=== PATIENT | male | born 1975 | race Caucasian/White ===

== ENCOUNTER 2020-01-10 09:51 | Emergency (ER) | payer BC ==
[~2020-01-10] VITALS: Ht 182.9 cm; Wt 81.6 kg
[2020-01-10 09:51] VITALS: BP 96/59
[2020-01-10] MEDS ORDERED: LORazepam Inj 2mg/ml 1ml ONE (09:58)
[2020-01-10] MEDS ORDERED: LORazepam Inj 2mg/ml 1ml IV ONE (10:00)
--- NOTE | 2020-01-10 10:20 | Emergency Room Report ---
History of Present Illness General Chief Complaint: Overdose Source: Patient (Ankush Alcaraz M.D.) Present Illness HPI Disclaimer: Please note that this report is being documented using [employer] technology. This can lead to erroneous entry secondary to incorrect interpretation by the dictating instrument. HPI: 44-year-old male reported history of depression with previous psychiatric hospitalization approximately 2 to 3 years ago presented for possible overdose. Patient reports that he recently came to [place] from [place]. He states he came here to "kill himself". Last night he was using fentanyl overnight and then called EMS this morning due to feelings of shortness of breath and muscle twitching. He denies any other significant medical history. Denies any allergies. Denies any other medical problems. He states he does not have any family in the area. Past medical history-depression Family history-noncontributory the case Social history occasional drinking, currently uses fentanyl, (Ankush Alcaraz M.D.) Allergies: Coded Allergies: No Known Allergies (Unverified , 01/10/20) COVID-19 Screening Contact w/high risk pt: No Recent Travel to affected area: No Experienced COVID-19 symptoms?: No (Ankush Alcaraz M.D.) Nursing Documentation-H Past Medical History: No Stated History (Ankush Alcaraz M.D.) Review of Systems All Other Systems: negative except mentioned in HPI (Ankush Alcaraz M.D.) Physical Exam Vital Signs Date Time Temp Pulse Resp B/P (MAP) Pulse Ox O2 Delivery O2 Flow Rate FiO2 01/10/20 09:44 98.4 103 22 96/59 (71) 99 Room Air Sp02 EP Interpretation: reviewed, normal General Appearance: mild distress, other - Anxious appearing Head: normocephalic, atraumatic Eyes: bilateral eye PERRL, bilateral eye EOMI ENT: hearing grossly normal, moist mucus membranes Neck: full range of motion, supple Respiratory: lungs clear, normal breath sounds, no rhonchi, no respiratory distress, no retraction, no wheezing Cardiovascular #1: normal peripheral pulses, no murmur, tachycardia Gastrointestinal: non tender, soft, non-distended, no guarding Neurologic: alert, oriented x3, no focal defects Psychiatric: anxious, other - Suicidal ideations, denies homicidal ideations Skin: normal color, warm/dry (Ankush Alcaraz M.D.) Medical Decision Making Diagnostic Impression: Primary Impression: Drug overdose Qualified Codes: T50.902A - Poisoning by unspecified drugs, medicaments and biological substances, intentional self-harm, initial encounter ER Course MDM: Patient presented from a hotel room after reportedly using fentanyl. On arrival he was anxious, tachycardic, and endorsing suicidal ideations. IV inserted patient placed on the monitor, given IV fluids, Ativan. Medical clearance labs were sent Clinical course-again IV fluids, Ativan, cardiac monitoring pulse oximetry, medical clearance labs were sent. Initially patient's glucose was elevated on his first chemistry. Also with an elevated anion gap and ketones in the urine. I then repeated his glucose which turned out to be normal around 70. Patient was eating food in the ER. So now I have a low suspicion for DKA however he does state he has not been eating or drinking appropriately for the past few days. So my differential included starvation ketosis, dehydration to name a few. Patient was signed out to oncoming physician to reassess patient and final disposition. Laboratory Tests Test 01/10/20 10:17 01/10/20 11:34 01/10/20 13:38 01/10/20 13:45 White Blood Count 23.3 K/UL (4.8-10.8) *H Red Blood Count 4.50 M/UL (4.70-6.10) L Hemoglobin 15.7 G/DL (14.2-18.0) Hematocrit 43.4 % (42.0-52.0) Mean Corpuscular Volume 96 FL (80-99) Mean Corpuscular Hemoglobin 34.8 PG (27.0-31.0) H Mean Corpuscular Hemoglobin Concent 36.1 G/DL (32.0-36.0) H Red Cell Distribution Width 11.2 % (11.6-14.8) L Platelet Count 241 K/UL (150-450) Mean Platelet Volume 6.5 FL (6.5-10.1) Neutrophils (%) (Auto) % (45.0-75.0) Lymphocytes (%) (Auto) % (20.0-45.0) Monocytes (%) (Auto) % (1.0-10.0) Eosinophils (%) (Auto) % (0.0-3.0) Basophils (%) (Auto) % (0.0-2.0) Differential Total Cells Counted 100 Neutrophils % (Manual) 87 % (45-75) H Lymphocytes % (Manual) 5 % (20-45) L Monocytes % (Manual) 8 % (1-10) Eosinophils % (Manual) 0 % (0-3) Basophils % (Manual) 0 % (0-2) Band Neutrophils 0 % (0-8) Platelet Estimate Adequate Platelet Morphology Normal Red Blood Cell Morphology Normal Sodium Level 139 MMOL/L (136-145) 133 MMOL/L (136-145) L Potassium Level 4.7 MMOL/L (3.5-5.1) 4.9 MMOL/L (3.5-5.1) Chloride Level 96 MMOL/L (98-107) L 96 MMOL/L (98-107) L Carbon Dioxide Level 15 MMOL/L (21-32) L 14 MMOL/L (21-32) L Anion Gap 28 mmol/L (5-15) H 23 mmol/L (5-15) H Blood Urea Nitrogen 28 mg/dL (7-18) H 28 mg/dL (7-18) H Creatinine 2.0 MG/DL (0.55-1.30) H 1.1 MG/DL (0.55-1.30) Estimated Glomerular Filtration Rate 36.5 mL/min (>60) > 60 mL/min (>60) Glucose Level 271 MG/DL (74-106) H 73 MG/DL (74-106) #L Calcium Level 8.9 MG/DL (8.5-10.1) 8.1 MG/DL (8.5-10.1) L Total Bilirubin 0.3 MG/DL (0.2-1.0) 0.7 MG/DL (0.2-1.0) Aspartate Amino Transferase (AST) 54 U/L (15-37) H 60 U/L (15-37) H Alanine Aminotransferase (ALT) 35 U/L (12-78) 32 U/L (12-78) Alkaline Phosphatase 93 U/L (46-116) 75 U/L (46-116) Total Protein 8.1 G/DL (6.4-8.2) 7.5 G/DL (6.4-8.2) Albumin 3.9 G/DL (3.4-5.0) 3.6 G/DL (3.4-5.0) Globulin 4.2 g/dL 3.9 g/dL Albumin/Globulin Ratio 0.9 (1.0-2.7) L 0.9 (1.0-2.7) L Lipase 521 U/L (73-393) H Salicylates Level 3.1 ug/mL (2.8-20) Acetaminophen Level < 2 MCG/ML (10-30) L Serum Alcohol < 3 mg/dL Urine Color Pale yellow Urine Appearance Clear Urine pH 5 (4.5-8.0) Urine Specific [place] 1.030 (1.005-1.035) Urine Protein 2+ (NEGATIVE) H Urine Glucose (UA) 3+ (NEGATIVE) H Urine Ketones 3+ (NEGATIVE) H Urine Blood 4+ (NEGATIVE) H Urine Nitrite Negative (NEGATIVE) Urine Bilirubin Negative (NEGATIVE) Urine Urobilinogen Normal MG/DL (0.0-1.0) Urine Leukocyte Esterase Negative (NEGATIVE) Urine RBC 5-10 /HPF (0 - 0) H Urine WBC 0-2 /HPF (0 - 0) Urine Squamous Epithelial Cells Occasional /LPF Urine Bacteria Occasional /HPF (NONE) Urine Opiates Screen Negative (NEGATIVE) Urine Barbiturates Screen Negative (NEGATIVE) Phencyclidine (PCP) Screen Negative (NEGATIVE) Urine Amphetamines Screen Negative (NEGATIVE) Urine Benzodiazepines Screen Negative (NEGATIVE) Urine Cocaine Screen Negative (NEGATIVE) Urine Marijuana (THC) Screen Positive (NEGATIVE) H Arterial Blood pH 7.311 (7.350-7.450) Arterial Blood Partial Pressure CO2 33.6 mmHg (35.0-45.0) L Arterial Blood Partial Pressure O2 96.0 mmHg (75.0-100.0) Arterial Blood HCO3 16.6 mmol/L (22.0-26.0) *L Arterial Blood Oxygen Saturation 97.5 % (95-100) Arterial Blood Base Excess -8.5 (-2-2) L Donal Test Positive (Ankush Alcaraz M.D.) ER Course 44-year-old male presents with acute suicidal ideations, patient pending sobriety, labs slowly correcting after rehydration. Patient continues to have an elevated white count most likely due to stress reaction in the setting of a fentanyl overdose we will continue to monitor patient. Patient is medically cleared for volunteer admission to psychiatric facility Reevaluation at 9:16 PM patient reports that he wants to leave states he will follow-up with a psychiatrist he states he was only high in the moment and is not suicidal Strongly cautioned patient that if he needs psychiatric resources we can voluntarily transport him patient states that he will follow-up as an outpatient we cannot restrict patient against his will patient is of sound mind Patient will follow-up with psychiatric resources Laboratory Tests Test 01/10/20 10:17 01/10/20 11:34 01/10/20 13:38 01/10/20 13:45 White Blood Count 23.3 K/UL (4.8-10.8) *H Red Blood Count 4.50 M/UL (4.70-6.10) L Hemoglobin 15.7 G/DL (14.2-18.0) Hematocrit 43.4 % (42.0-52.0) Mean Corpuscular Volume 96 FL (80-99) Mean Corpuscular Hemoglobin 34.8 PG (27.0-31.0) H Mean Corpuscular Hemoglobin Concent 36.1 G/DL (32.0-36.0) H Red Cell Distribution Width 11.2 % (11.6-14.8) L Platelet Count 241 K/UL (150-450) Mean Platelet Volume 6.5 FL (6.5-10.1) Neutrophils (%) (Auto) % (45.0-75.0) Lymphocytes (%) (Auto) % (20.0-45.0) Monocytes (%) (Auto) % (1.0-10.0) Eosinophils (%) (Auto) % (0.0-3.0) Basophils (%) (Auto) % (0.0-2.0) Differential Total Cells Counted 100 Neutrophils % (Manual) 87 % (45-75) H Lymphocytes % (Manual) 5 % (20-45) L Monocytes % (Manual) 8 % (1-10) Eosinophils % (Manual) 0 % (0-3) Basophils % (Manual) 0 % (0-2) Band Neutrophils 0 % (0-8) Platelet Estimate Adequate Platelet Morphology Normal Red Blood Cell Morphology Normal Sodium Level 139 MMOL/L (136-145) 133 MMOL/L (136-145) L Potassium Level 4.7 MMOL/L (3.5-5.1) 4.9 MMOL/L (3.5-5.1) Chloride Level 96 MMOL/L (98-107) L 96 MMOL/L (98-107) L Carbon Dioxide Level 15 MMOL/L (21-32) L 14 MMOL/L (21-32) L Anion Gap 28 mmol/L (5-15) H 23 mmol/L (5-15) H Blood Urea Nitrogen 28 mg/dL (7-18) H 28 mg/dL (7-18) H Creatinine 2.0 MG/DL (0.55-1.30) H 1.1 MG/DL (0.55-1.30) Estimated Glomerular Filtration Rate 36.5 mL/min (>60) > 60 mL/min (>60) Glucose Level 271 MG/DL (74-106) H 73 MG/DL (74-106) #L Calcium Level 8.9 MG/DL (8.5-10.1) 8.1 MG/DL (8.5-10.1) L Total Bilirubin 0.3 MG/DL (0.2-1.0) 0.7 MG/DL (0.2-1.0) Aspartate Amino Transferase (AST) 54 U/L (15-37) H 60 U/L (15-37) H Alanine Aminotransferase (ALT) 35 U/L (12-78) 32 U/L (12-78) Alkaline Phosphatase 93 U/L (46-116) 75 U/L (46-116) Total Protein 8.1 G/DL (6.4-8.2) 7.5 G/DL (6.4-8.2) Albumin 3.9 G/DL (3.4-5.0) 3.6 G/DL (3.4-5.0) Globulin 4.2 g/dL 3.9 g/dL Albumin/Globulin Ratio 0.9 (1.0-2.7) L 0.9 (1.0-2.7) L Lipase 521 U/L (73-393) H Salicylates Level 3.1 ug/mL (2.8-20) Acetaminophen Level < 2 MCG/ML (10-30) L Serum Alcohol < 3 mg/dL Urine Color Pale yellow Urine Appearance Clear Urine pH 5 (4.5-8.0) Urine Specific [place] 1.030 (1.005-1.035) Urine Protein 2+ (NEGATIVE) H Urine Glucose (UA) 3+ (NEGATIVE) H Urine Ketones 3+ (NEGATIVE) H Urine Blood 4+ (NEGATIVE) H Urine Nitrite Negative (NEGATIVE) Urine Bilirubin Negative (NEGATIVE) Urine Urobilinogen Normal MG/DL (0.0-1.0) Urine Leukocyte Esterase Negative (NEGATIVE) Urine RBC 5-10 /HPF (0 - 0) H Urine WBC 0-2 /HPF (0 - 0) Urine Squamous Epithelial Cells Occasional /LPF Urine Bacteria Occasional /HPF (NONE) Urine Opiates Screen Negative (NEGATIVE) Urine Barbiturates Screen Negative (NEGATIVE) Phencyclidine (PCP) Screen Negative (NEGATIVE) Urine Amphetamines Screen Negative (NEGATIVE) Urine Benzodiazepines Screen Negative (NEGATIVE) Urine Cocaine Screen Negative (NEGATIVE) Urine Marijuana (THC) Screen Positive (NEGATIVE) H Arterial Blood pH 7.311 (7.350-7.450) Arterial Blood Partial Pressure CO2 33.6 mmHg (35.0-45.0) L Arterial Blood Partial Pressure O2 96.0 mmHg (75.0-100.0) Arterial Blood HCO3 16.6 mmol/L (22.0-26.0) *L Arterial Blood Oxygen Saturation 97.5 % (95-100) Arterial Blood Base Excess -8.5 (-2-2) L Donal Test Positive Test 01/10/20 15:45 01/10/20 20:05 White Blood Count 20.3 K/UL (4.8-10.8) H 13.5 K/UL (4.8-10.8) H Red Blood Count 4.08 M/UL (4.70-6.10) L 3.20 M/UL (4.70-6.10) L Hemoglobin 13.7 G/DL (14.2-18.0) L 10.5 G/DL (14.2-18.0) L Hematocrit 41.6 % (42.0-52.0) L 32.6 % (42.0-52.0) L Mean Corpuscular Volume 102 FL (80-99) H 102 FL (80-99) H Mean Corpuscular Hemoglobin 33.5 PG (27.0-31.0) H 32.9 PG (27.0-31.0) H Mean Corpuscular Hemoglobin Concent 32.8 G/DL (32.0-36.0) 32.3 G/DL (32.0-36.0) Red Cell Distribution Width 11.8 % (11.6-14.8) 12.1 % (11.6-14.8) Platelet Count 196 K/UL (150-450) 145 K/UL (150-450) L Mean Platelet Volume 8.4 FL (6.5-10.1) 8.5 FL (6.5-10.1) Neutrophils (%) (Auto) % (45.0-75.0) 82.9 % (45.0-75.0) H Lymphocytes (%) (Auto) % (20.0-45.0) 8.7 % (20.0-45.0) L Monocytes (%) (Auto) % (1.0-10.0) 7.1 % (1.0-10.0) Eosinophils (%) (Auto) % (0.0-3.0) 0.0 % (0.0-3.0) Basophils (%) (Auto) % (0.0-2.0) 1.4 % (0.0-2.0) Differential Total Cells Counted 100 Neutrophils % (Manual) 91 % (45-75) H Lymphocytes % (Manual) 3 % (20-45) L Monocytes % (Manual) 6 % (1-10) Eosinophils % (Manual) 0 % (0-3) Basophils % (Manual) 0 % (0-2) Band Neutrophils 0 % (0-8) Platelet Estimate Adequate Platelet Morphology Normal Macrocytosis 1+ Lipase 156 U/L (73-393) (Oj Craft MD) Last Vital Signs Date Time Temp Pulse Resp B/P (MAP) Pulse Ox O2 Delivery O2 Flow Rate FiO2 01/10/20 09:51 98.4 103 22 96/59 99 Room Air Status: improved (Ankush Alcaraz M.D.) Disposition: HOME, SELF-CARE Condition: Stable Signed Out To: Dr. Craft (Ankush Alcaraz M.D.) Patient Instructions: Self-Destructive Behavior Additional Instructions: The patient was provided with discharge instructions, notified to follow-up with a primary care doctor and or specialist in the next 24-48 hours, and to return to the ED if they have worsening of their symptoms. Please note that this report is being documented using [employer] technology. This can lead to erroneous entry secondary to incorrect interpretation by the dictating instrument. Ankush Alcaraz M.D. January 10, 2020 10:20 Oj Craft MD January 10, 2020 18:02
[2020-01-10 11:00] VITALS: BP 118/72
[2020-01-10 11:01] LABS: ANION GAP 28 mmol/L (5-15); BLOOD UREA NITROGEN 28 mg/dL (7-18); CALCIUM 8.9 MG/DL (8.5-10.1); CARBON DIOXIDE 15 MMOL/L (21-32); CHLORIDE 96 MMOL/L (98-107); POTASSIUM 4.7 MMOL/L (3.5-5.1); SODIUM 139 MMOL/L (136-145)
[2020-01-10 11:05] LABS: ALANINE AMINOTRANSFERASE 35 U/L (12-78); ALBUMIN 3.9 G/DL (3.4-5.0); ALBUMIN/GLOBULIN RATIO 0.9 (1.0-2.7); ALKALINE PHOSPHATASE 93 U/L (46-116); ASPARTATE AMINO TRANSFERASE 54 U/L (15-37); BILIRUBIN,TOTAL 0.3 MG/DL (0.2-1.0)
[2020-01-10 11:07] LABS: HEMATOCRIT 43.4 % (42.0-52.0); HEMOGLOBIN 15.7 G/DL (14.2-18.0); MEAN CORPUSCULAR VOLUME 96 FL (80-99); PLATELET COUNT 241 K/UL (150-450); RED CELL DISTRIBUTION WIDTH 11.2 % (11.6-14.8)
[2020-01-10 11:09] LABS: WHITE BLOOD COUNT 23.3 K/UL (4.8-10.8)
[2020-01-10 11:57] LABS: APPEARANCE,URINE CLEAR; BILIRUBIN, URINE NEGATIVE (NEGATIVE); COLOR,URINE PALE YELLOW; GLUCOSE, URINE (UA) 3+ (NEGATIVE); KETONES,URINE 3+ (NEGATIVE); LEUKOCYTE ESTERASE ,URINE NEGATIVE (NEGATIVE); NITRITE,URINE NEGATIVE (NEGATIVE); PH,URINE 5 (4.5-8.0); PROTEIN,URINE 2+ (NEGATIVE); UROBILINOGEN,URINE NORMAL MG/DL (0.0-1.0)
[2020-01-10 13:00] VITALS: BP 110/69
[2020-01-10 14:22] LABS: ANION GAP 23 mmol/L (5-15); BLOOD UREA NITROGEN 28 mg/dL (7-18); CALCIUM 8.1 MG/DL (8.5-10.1); CARBON DIOXIDE 14 MMOL/L (21-32); CHLORIDE 96 MMOL/L (98-107); CREATININE 1.1 MG/DL (0.55-1.30); POTASSIUM 4.9 MMOL/L (3.5-5.1); SODIUM 133 MMOL/L (136-145)
[2020-01-10 14:27] LABS: ALANINE AMINOTRANSFERASE 32 U/L (12-78); ALBUMIN 3.6 G/DL (3.4-5.0); ALBUMIN/GLOBULIN RATIO 0.9 (1.0-2.7); ALKALINE PHOSPHATASE 75 U/L (46-116); ASPARTATE AMINO TRANSFERASE 60 U/L (15-37); BILIRUBIN,TOTAL 0.7 MG/DL (0.2-1.0)
[2020-01-10] MEDS ORDERED: DiphenhydrAMINE 50mg/ml Inj IM ONE (14:45)
[2020-01-10] MEDS ORDERED: LORazepam Inj 2mg/ml 1ml IM ONE (14:45)
[2020-01-10] MEDS ORDERED: Haloperidol 5mg/ml Inj IM ONE (14:45)
[2020-01-10 15:00] VITALS: BP 107/62
[2020-01-10 16:16] LABS: HEMATOCRIT 41.6 % (42.0-52.0); HEMOGLOBIN 13.7 G/DL (14.2-18.0); MEAN CORPUSCULAR VOLUME 102 FL (80-99); PLATELET COUNT 196 K/UL (150-450); RED BLOOD COUNT 4.08 M/UL (4.70-6.10); RED CELL DISTRIBUTION WIDTH 11.8 % (11.6-14.8); WHITE BLOOD COUNT 20.3 K/UL (4.8-10.8)
[2020-01-10 17:00] VITALS: BP 103/72
[2020-01-10 20:29] LABS: BASOPHILS % (AUTO) 1.4 % (0.0-2.0); HEMATOCRIT 32.6 % (42.0-52.0); HEMOGLOBIN 10.5 G/DL (14.2-18.0); LYMPHOCYTES % (AUTO) 8.7 % (20.0-45.0); MEAN CORPUSCULAR VOLUME 102 FL (80-99); MONOCYTES % (AUTO) 7.1 % (1.0-10.0); NEUTROPHILS % (AUTO) 82.9 % (45.0-75.0); PLATELET COUNT 145 K/UL (150-450); RED CELL DISTRIBUTION WIDTH 12.1 % (11.6-14.8); WHITE BLOOD COUNT 13.5 K/UL (4.8-10.8)
[2020-01-10] MEDS ORDERED: Morphine Sulfate 4mg/ml Inj (IV USE ONLY) IVP ONE (20:30)
[2020-01-10 21:30] VITALS: BP 110/77
== END 2020-01-10 21:33 | disposition home or self-care (01) ==
LOC: EDBD 09:51 → EMR 10:50
DX: T40.4X2A Poisoning by other synthetic narcotics, intentional self-harm, initial encounter (principal); Y92.9 Unspecified place or not applicable
CPT/HCPCS: 36415; 36600; 80053; 80307; 81003; 82803; 83690; 85007; 85025; 96361; 96372; 96374; 96375; 99285; G0480; J1200; J1630; J2270; J2405; J7030